=== PATIENT | female | born 1940 | race Caucasian/White ===

== ENCOUNTER 2019-10-13 08:00 | Observation (INO) | payer OTHER ==
[~2019-10-13] VITALS: Ht 160 cm; Wt 69.9 kg
[2019-10-13] MEDS ORDERED: SIMVASTATIN40 M1 PO (14:43)
[2019-10-13] MEDS ORDERED: LISINOPRIL-HYDR1 TA4 PO ×2 (14:43→14:47)
[2019-10-13] MEDS ORDERED: LEVO-T100 MCG PO ×2 (14:43→14:45)
[2019-10-13] MEDS ORDERED: FORTAMET500 M1 PO (14:44)
[2019-10-13] MEDS ORDERED: MASON NATURAL1000 IU (14:44)
[2019-10-13] MEDS ORDERED: EUTHYROX100 MCG (14:46)
[2019-10-13] MEDS ORDERED: SIMVASTATIN40 M1 (14:47)
[2019-10-13 20:50] VITALS: BP 141/58
[2019-10-14 05:10] VITALS: BP 116/61
[2019-10-14 06:51] LABS: BASOPHIL % 0.5 % (0-2); PLATELET COUNT 316 x10^3mcL (130-400); RED CELL DISTRIBUTION WIDTH 13.6 % (11.5-14.5)
[2019-10-14 07:45] LABS: CARBON DIOXIDE 29.4 mmol/L (21-32); CHLORIDE SERUM 100 mmol/L (98-107); POTASSIUM SERUM 3.8 mmol/L (3.5-5.1); SODIUM SERUM 137 mmol/L (136-145)
[2019-10-14 07:46] LABS: ALBUMIN 3.5 g/dL (3.4-5.0); ALKALINE PHOSPHATASE 67 U/L (46-116); ALT/SGPT 25 U/L (14-59); AST/SGOT 29 U/L (15-37); BILIRUBIN TOTAL 0.4 mg/dL (0.20-1.00); CALCIUM 9.1 mg/dL (8.5-10.1); CREATININE SERUM 1.2 mg/dL (0.6-1.0); GLUCOSE SERUM 99 mg/dL (74-106); TOTAL PROTEIN, SERUM 7.3 g/dL (6.4-8.2)
[2019-10-14 07:47] LABS: MAGNESIUM 1.8 mg/dL (1.8-2.4)
[2019-10-14 08:08] VITALS: BP 148/67
[2019-10-14 11:47] VITALS: BP 130/68
[2019-10-14 13:09] VITALS: Ht 160 cm; Wt 69.9 kg
[2019-10-14 13:36] VITALS: BP 130/68
== END 2019-10-14 15:44 ==
LOC: ED 08:00 → MU 19:55
PROVIDERS: ADMIT Internal Medicine Pulmonary Disease
DX: M54.41 Lumbago with sciatica, right side (principal); M47.817 Spondylosis without myelopathy or radiculopathy, lumbosacral region; I10 Essential (primary) hypertension; E03.9 Hypothyroidism, unspecified
CPT/HCPCS: 97116-GP; 97530-GP; G0378; J1644; J2270; J2405